=== PATIENT | female | born 1990 | race Caucasian/White ===

== ENCOUNTER → 2017-04-24 | Outpatient (CLI) | payer OTHER ==
--- NOTE | 2017-04-24 09:43 | DIAGNOSTIC IMAGING REPORT ---
R HIP UNILATERAL MIN 2 VIEWS CLINICAL HISTORY: Bilateral hip pain. COMPARISON: None FINDINGS: Alignment of the right hip is anatomic. There is no fracture or suspicious lesion. There is no evidence for avascular necrosis. Joint space is preserved. There is mild osteophytosis of the right hip. IMPRESSION: 1. No acute fracture. 2. Preserved right hip joint space with mild osteophytosis of the right hip. Electronically signed by: Lan Irwin M.D. 04/24/2017 9:42 AM Dictated Date/Time: 04/24/2017 9:41 AM
--- NOTE | 2017-04-24 09:44 | DIAGNOSTIC IMAGING REPORT ---
L HIP UNILATERAL MIN 2 VIEWS CLINICAL HISTORY: BILATERAL HIP PAIN COMPARISON: None FINDINGS: Alignment of the left hip is anatomic. Slight irregularity of the lesser trochanter is due to muscular insertion. This is chronic. There is no fracture or suspicious lesion. There is no evidence for avascular necrosis. Left hip joint space is preserved. There is minimal osteophytosis of the left hip. IMPRESSION: 1. No acute fracture. 2. Preserved left hip joint space with mild osteophytosis. Electronically signed by: Lan Irwin M.D. 04/24/2017 9:42 AM Dictated Date/Time: 04/24/2017 9:42 AM
== END | disposition home or self-care (01) ==
LOC: C.RDSM 09:22
PROVIDERS: ATTEND Internal Medicine
DX: M25.551 Pain in right hip (principal)